=== PATIENT | female | born 1945 | race Caucasian/White ===

== ENCOUNTER 2017-04-23 14:11 | Outpatient (CLI) | payer MEDICARE, BC ==
--- NOTE | 2017-04-25 08:43 | Mammography Report ---
DIGITAL BILATERAL SCREENING MAMMOGRAM: 04/23/2017 CLINICAL HISTORY: This is a 71-year-old female in for routine screening mammogram. Patient has no f amily history of breast cancer. Patient has no breast surgical history. COMPARISON: 10/07/2012, 11/25/2013, 02/27/2015 TECHNIQUE: Routine CC and MLO projections were obtained of the breasts. FINDINGS: Breast parenchyma consists almost entirely of fat. No significant clusters of calcificati on are seen. No significant masses are noted. No significant change is seen. IMPRESSION: BREASTS APPEAR RADIOGRAPHICALLY BENIGN. BIRADS CATEGORY 1 - NEGATIVE. RECOMMENDATIONS: Annual bilateral screening mammography. STANDARD QUALIFYING STATEMENTS 1. This examination was reviewed with the aid of Computer-Aided Detection (CAD). 2. A negative or benign imaging report should not delay biopsy if clinically suspicious findings are present. Consider surgical consultation if warranted. More than 5% of cancers are not identified by i maging. 3. Dense breasts may obscure an underlying neoplasm. JOB #: [id number] EXT JOB #:[id number]
== END 2017-04-23 14:12 | disposition home or self-care (01) ==
LOC: DI.S 14:11
PROVIDERS: ATTEND Family Medicine
DX: Z12.31 Encounter for screening mammogram for malignant neoplasm of breast (principal)
CPT/HCPCS: 77067

== ENCOUNTER 2017-08-03 09:12 | Emergency (ER) | payer MEDICARE, BC ==
[2017-08-03 09:22] VITALS: BP 193/98
[2017-08-03] MEDS ORDERED: SULFAMETH/TRIMETH DS 800/160 MG TABLET PO STA (09:59)
[2017-08-03] MEDS ORDERED: PHENAZOPYRIDINE 100 MG TABLET PO STA (10:00)
--- NOTE | 2017-08-03 10:05 | ED Physician Documentation ---
History of Present Illness - Stated complaint Stated Complaint: FEMALE - Chief complaint Chief Complaint: UTI - History obtained from History obtained from: Patient - Additonal information Additional information: Patient is a 71-year-old female who for the most part is healthy. She presents with a complaint of lower urinary symptoms for the past couple days it is increasing despite [id number] urinary medications. She denies any nausea , fever, chills constipation or diarrhea. She has had urinary tract infections in the past and this feels similar. Review of systems: For pertinent positive and negatives in the review of systems please see the history of present illness, otherwise all other systems have been reviewed and are negative. Dragon disclaimer: Parts of this medical record were created using voice recognition technology. Because of the inherent limitations of this system, occasional same sounding word substitutions do occur and persist despite proofreading. Please read the document for context. Review of Systems Constitutional: denies: Fever, Chills GI: denies: Abdominal Pain, Abdominal Swelling, Nausea, Vomiting : reports: Dysuria, Frequency, Hesitancy, Unable to Void, Hematuria PD PAST MEDICAL HISTORY - Past Medical History Cardiovascular: Hypertension GI: GERD Psych: Depression Musculoskeletal: Other - Past Surgical History Past Surgical History: Yes Ortho: Knee replacement, Other - Present Medications Home Medications: Ambulatory Orders Medication Instructions Recorded Confirmed Lisinopril [Prinivil] 10 mg PO DAILY 09/13/13 08/03/17 Albuterol Sulfate [Proair Hfa 2 puffs INH Q4H PRN 11/20/16 08/03/17 Inhaler] Escitalopram [Lexapro] 10 mg PO DAILY 11/20/16 08/03/17 Omeprazole [PriLOSEC] 40 mg PO DAILY 11/20/16 08/03/17 Zolpidem Tartrate 2.5 - 5 mg PO QPM PRN 11/20/16 08/03/17 Phenazopyridine HCl [Pyridium] 200 mg PO TID #9 tablet 08/03/17 Sulfamethox/Trimeth 800/160 1 each PO BID #14 tablet 08/03/17 [Bactrim Ds 800/160] - Allergies Allergies/Adverse Reactions: Allergies Allergy/AdvReac Type Severity Reaction Status Date / Time erythromycin base Allergy Severe Hives Verified 08/03/17 09:22 [Erythromycin Base] Penicillins Allergy Severe Hives Verified 08/03/17 09:22 - Social History Does the pt smoke?: No Smoking Status: Never smoker Does the pt drink ETOH?: Yes Does the pt have substance abuse?: No - Immunizations Immunizations are current?: No Immunizations: TDAP current <10years - POLST Patient has POLST: No PD ED PE NORMAL - Vitals Vital signs reviewed: Yes - General General: Alert and oriented X 3 - Cardiac Cardiac: RRR - Respiratory Respiratory: No respiratory distress - Abdomen Abdomen: Normal bowel sounds, Soft, Non tender, Non distended - Neuro Neuro: Alert and oriented X 3 - Psych Psych: Normal mood, Normal affect Results - Vitals Vitals: Vital Signs - 24 hr 08/03/17 09:19 Temperature 36.7 C Heart Rate 80 Respiratory 16 Rate Blood Pressure 193/98 H O2 Saturation 99 Oxygen O2 Source Room air - Labs Labs: Laboratory Tests 08/03/17 09:20 Urine Color RED/BLOODY Urine Clarity BLOODY Urine pH 6.0 Ur Specific [place] 1.020 Urine Protein 100 H Urine Glucose (UA) NEGATIVE Urine Ketones NEGATIVE Urine Occult Blood LARGE H Urine Nitrite NEGATIVE Urine Bilirubin NEGATIVE Urine Urobilinogen 0.2 (NORMAL) Ur Leukocyte Esterase SMALL H Urine RBC TNTC H Urine WBC >25 H Ur Epithelial Cells RARE Renal Tubular Ur Squamous Epith Cells NONE SEEN Urine Bacteria Rare Ur Microscopic Review INDICATED Urine Culture Comments INDICATED PD MEDICAL DECISION MAKING - ED course Complexity details: re-evaluated patient, d/w patient ED course: Well-appearing young 71-year-old female here with lower urinary symptoms 1 day. She looks great on physical examination and stable vital signs and no concerning signs or symptoms. Her urine is suggestive of urinary tract infection with RBCs and white blood cells. She will be placed on a short course of Bactrim and Pyridium is been asked to watch her symptoms closely and return should she not improve. Disposition: To home Clinical impression: 1. Acute hemorrhagic cystitis Departure - Departure Disposition: 01 Home, Self Care Clinical Impression: Urinary tract infection Condition: Good Instructions: Urinary Tract Infecs Women Follow-Up: Brad Beckett MD [Primary Care Provider] - Prescriptions: Sulfamethox/Trimeth 800/160 [Bactrim Ds 800/160] 1 each PO BID #14 tablet Phenazopyridine HCl [Pyridium] 200 mg PO TID #9 tablet
[2017-08-03 10:10] LABS: BILIRUBIN,URINE NEGATIVE (NEGATIVE)
[2017-08-03] MEDS ORDERED: SULFAMETH/TRIMETH DS 800/160 MG TABLET PO ONE (10:10)
[2017-08-03] MEDS ORDERED: PHENAZOPYRIDINE 100 MG TABLET PO ONE (10:11)
[2017-08-03 10:22] LABS: UA w/ MICROSCOPIC CHARGE YES
[2017-08-03 10:27] LABS: WBC,URINE >25 /HPF (0-5)
[2017-08-03 10:28] LABS: UR CULTURE IF IND INDICATED
== END 2017-08-03 10:38 | disposition home or self-care (01) ==
LOC: ED 09:12
DX: N39.0 Urinary tract infection, site not specified (principal); I10 Essential (primary) hypertension; K21.9 Gastro-esophageal reflux disease without esophagitis
CPT/HCPCS: 81001; 87086; 87181; 99283; A9270; 81003

== ENCOUNTER 2018-10-01 09:01 | Outpatient (CLI) | payer MEDICARE, BC ==
--- NOTE | 2018-10-01 09:42 | CT Report ---
Reason: HEAD INJURY,DIZZINESS Procedure Date: 10/01/2018 Accession Number: [id number] / [id number] Procedure: CT - Head W/O CPT Code: FULL RESULT: EXAM: CT HEAD EXAM DATE: 10/01/2018 09:21 AM. CLINICAL HISTORY: HEAD INJURY, DIZZINESS. COMPARISON: Noncontrast head CT from 08/15/2015. TECHNIQUE: Multiaxial CT images were obtained from the foramen magnum to the vertex. Reformats: Sagittal and coronal. IV contrast: None. In accordance with CT protocol optimization, one or more of the following dose reduction techniques were utilized for this exam: automated exposure control, adjustment of mA and/or KV based on patient size, or use of iterative reconstructive technique. FINDINGS: Parenchyma: There is mild hypoattenuation in the periventricular and deep matter of bilateral cerebral hemispheres. The overall alba-white matter differentiation is preserved. No intracranial hemorrhage demonstrated. No evidence of mass or mass-effect. Extraaxial Spaces: Mild diffuse prominence, compatible with central volume loss. No extra-axial hemorrhage or fluid collection. Ventricles: Mildly prominent, again compatible with volume loss. No midline shift demonstrated. Basal cisterns are widely patent. Sinuses and Orbits: Imaged paranasal sinuses, orbits, and mastoids show no significant abnormality. Bones: No evidence of fracture or calvarial defect. Other: There is a small soft tissue hematoma over the left posterior parieto-occipital region. IMPRESSION: 1. Small soft tissue hematoma over the left parieto-occipital region. 2. No acute intracranial abnormality. 3. Sequela of mild chronic microvascular disease. RADIA
== END 2018-10-01 09:02 | disposition home or self-care (01) ==
LOC: DI 09:01
PROVIDERS: ATTEND Nurse Practitioner Family
DX: S00.03XA Contusion of scalp, initial encounter (principal); S09.90XA Unspecified injury of head, initial encounter; R42 Dizziness and giddiness
CPT/HCPCS: 70450

== ENCOUNTER 2018-12-30 14:06 | Outpatient (CLI) | payer MEDICARE, BC ==
--- NOTE | 2018-12-31 08:36 | Mammography Report ---
Reason: ENCOUNTER FOR SCREENING MAMMOGRAM FOR MALIGNANT NE Procedure Date: 12/30/2018 Accession Number: [id number] / [id number] Procedure: ALEC - Screening Mammo w/Kin CPT Code: FULL RESULT: EXAM: Screening Mammo w/Kin DATE: 12/30/2018 3:05 PM CLINICAL HISTORY: Screening encounter. No reported risk factors. TECHNIQUE: Bilateral CC and MLO views were obtained. COMPARISON: 04/23/2017 through 10/07/2012. FINDINGS: The breasts demonstrate diffuse fatty replacement bilaterally. No suspicious masses, clustered microcalcifications, or regions of architectural distortion are identified. IMPRESSION: Negative examination RECOMMENDATION: Routine annual screening unless otherwise clinically indicated. BIRADS CATEGORY 1: Negative STANDARD QUALIFYING STATEMENTS: 1. This examination was not reviewed with the aid of Computer-Aided Detection (CAD). 2. A negative or benign imaging report should not preclude biopsy if clinically suspicious findings are present. 3. Dense breasts may obscure an underlying neoplasm. 4. This examination was reviewed with the aid of 3D breast imaging (tomosynthesis).
== END 2018-12-30 14:07 | disposition home or self-care (01) ==
LOC: DI 14:06
PROVIDERS: ATTEND Family Medicine
DX: Z12.31 Encounter for screening mammogram for malignant neoplasm of breast (principal)
CPT/HCPCS: 77063; 77067

== ENCOUNTER 2019-07-09 10:32 | Outpatient (CLI) | payer MEDICARE, BC ==
--- NOTE | 2019-07-09 18:21 | XRAY Report ---
Reason: PLEURODYNIA Procedure Date: 07/09/2019 Accession Number: [id number] / [id number] Procedure: XRS - Ribs 2 View RT CPT Code: FULL RESULT: EXAM: RIGHT RIB RADIOGRAPHY EXAM DATE: 07/09/2019 10:47 AM. CLINICAL HISTORY: Pleurodynia. COMPARISON: CHEST 2 VIEW 07/09/2019 10:50 AM. TECHNIQUE: 2 views. FINDINGS: Bones: Bones are osteopenic. No fractures or bone lesions. Fusion hardware is seen in the lumbar spine. Lungs: No focal opacities evident. No pneumothorax or pleural effusions. Mediastinum: Heart and cardiomediastinal contours are unremarkable. Other: None. IMPRESSION: No rib or chest wall abnormality identified. RADIA
--- NOTE | 2019-07-09 18:21 | XRAY Report ---
Reason: PLEURODYNIA Procedure Date: 07/09/2019 Accession Number: [id number] / [id number] Procedure: XRS - Chest 2 View X-Ray CPT Code: 55076 FULL RESULT: EXAM: CHEST RADIOGRAPHY EXAM DATE: 07/09/2019 10:47 AM. CLINICAL HISTORY: PLEURODYNIA. COMPARISON: 11/04/2014 3:03 PM. TECHNIQUE: 2 views. FINDINGS: Lungs/Pleura: No focal opacities evident. No pleural effusion. No pneumothorax. Normal volumes. Mediastinum: Heart and mediastinal contours are unremarkable. Other: Spinal fusion hardware is seen in the upper lumbar spine region. Extensive diskogenic disease and retrolisthesis is seen at the thoracolumbar junction of uncertain chronicity. IMPRESSION: 1. No cardiopulmonary abnormality demonstrated. 2. Extensive diskogenic disease and moderate retrolisthesis at the thoracolumbar junction. No comparisons available. Findings are of uncertain chronicity. Patient may benefit from thoracic spine MRI for further evaluation. RADIA
== END 2019-07-09 10:33 | disposition home or self-care (01) ==
LOC: DI.S 10:32
PROVIDERS: ATTEND Nurse Practitioner Family
DX: R07.81 Pleurodynia (principal); M51.35 Other intervertebral disc degeneration, thoracolumbar region; M43.15 Spondylolisthesis, thoracolumbar region
CPT/HCPCS: 71046

== ENCOUNTER 2020-02-27 13:57 | Outpatient (CLI) | payer MEDICARE, BC | END 2020-02-27 13:58 | disposition short-term general hospital (02) | LOC: EMS 13:57 | PROVIDERS: ATTEND Surgery | DX: R47.81 Slurred speech (principal); R53.1 Weakness; R51 Headache | CPT/HCPCS: A0425; A0429 ==

== ENCOUNTER 2020-02-28 20:41 | Outpatient (CLI) | payer MEDICARE, BC | END 2020-02-28 20:42 | disposition short-term general hospital (02) | LOC: EMS 20:41 | PROVIDERS: ATTEND Surgery | DX: R29.810 Facial weakness (principal); R47.81 Slurred speech | CPT/HCPCS: A0425; A0429 ==

== ENCOUNTER 2020-06-24 09:19 | Outpatient (CLI) | payer MEDICARE, BC ==
--- NOTE | 2020-06-26 10:58 | MRI Report ---
PROCEDURE: Brain W/O INDICATIONS: HX OF SUBDURAL HEMATOMA, SEIZURE ORDER TECHNIQUE: Noncontrast axial T1 spin echo, axial T2 fast spin echo, sagittal and axial FLAIR, coronal T2 fast sp in echo, axial gradient echo, axial diffusion and ADC through the brain. COMPARISON: Correlation is made with head CT 10/01/2018 and 08/15/2015. Outside imaging is not availa ble for review at the time of this dictation. FINDINGS: Image quality: Excellent. CSF Spaces: Basal cisterns are patent. No extra-axial fluid collections. Ventricles are normal in size and shape. Brain: No intracranial masses or hemorrhage. Walter/white matter interface is normal. Brainstem appe ars normal. Diffusion-weighted images demonstrate no acute ischemic insult. Brain parenchymal volum e loss is seen. T2 hyperintense white matter lesions are seen, which are most prominent within the pe riventricular and deep white matter. No chronic ischemic insults. Normal intravascular flow voids ar e present. In this patient, scrutiny is given to the hippocampal regions. No significant hippocampal abnormality or asymmetry is detected. Skull and face: Calvarium has normal marrow signal. Orbits appear normal. Incidental note is made of bilateral lens replacements. Sinuses: Sinuses and mastoids are clear. Incidental note is made of a right-sided lucius bullosa. T here is mild leftward nasal septal deviation. IMPRESSION: No hemorrhage is seen. Brain parenchymal volume loss is seen. T2 hyperintense white matter lesions are seen, which are stati stically most likely related to chronic small vessel ischemic change in a patient of this age. A cause of seizures is not identified. Reviewed by: Uvaldo Katz MD on 06/26/2020 9:57 AM KATHLEEN Approved by: Uvaldo Katz MD on 06/26/2020 9:57 AM KATHLEEN Station ID: [id number]
== END 2020-06-24 09:20 | disposition home or self-care (01) ==
LOC: DI 09:19
PROVIDERS: ATTEND Psychiatry & Neurology Neurology
DX: G40.909 Epilepsy, unspecified, not intractable, without status epilepticus (principal); Z86.79 Personal history of other diseases of the circulatory system
CPT/HCPCS: 70551

== ENCOUNTER 2020-12-28 12:59 | Outpatient (CLI) | payer MEDICARE, BC ==
--- NOTE | 2020-12-28 15:39 | MRI Report ---
PROCEDURE: Lumbar Spine W/O INDICATIONS: LUMBOSACRAL RADICULOPATHY TECHNIQUE: Noncontrast sagittal T1 spin echo and T2 fast echo, sagittal STIR, axial T1 and T2 fast spin echo thr ough the lumbar spine. In cases with scoliosis, additional coronal T2 fast spin echo may be performe d. COMPARISON: prior lumbar MRI 02/27/2015 FINDINGS: Image quality: There is artifact associated with the metallic hardware. Motion artifact is noted. Alignment and Curvature: There is grade 1 retrolisthesis seen at T12-L1 and at L1-L2. Minimal retrol isthesis is seen at L2-L3. There is minimal anterolisthesis at L3-L4. Mild grade 1 anterolisthesis is seen at L4-L5. Minimal to mild dextroconvex lumbar sclerotic curvature can be seen. Bone Marrow: Marrow is of normal overall signal. No acute vertebral body compression fractures. Re mote Schmorl's nodes with mild loss of vertebral body height can be seen involving T10 and T11. There is approximately 20% loss of height seen involving T12 and L1 centrally, without acute features. T12 fracture and the L1 fracture have progressed compared to the 2015 examination, however. Spinal Cord: Conus medullaris terminates at the T12-L1 level. Visualized cord demonstrates normal s ignal and size. Paraspinous Soft Tissues: No paravertebral masses. Postoperative changes are seen, with bilateral pedicle screws at L3, L4, and L5. Vertical fixation ro ds are seen. There is associated susceptibility artifact. There has been removal of portions of the posterior elements. T12-L1: Moderate to severe loss of disc height and disc signal can be seen. Relatively prominent end plate irregularity can be seen. Moderate disc bulge is seen at this level. Moderate to severe bilat eral neuroforaminal narrowing can be seen. At least moderate central canal narrowing can be seen. The se degenerative changes have progressed when compared to the prior examination. L1-L2: At least moderate loss of disc height and disc signal can be seen. Mild to moderate disc bu lge is seen. Mild to moderate facet hypertrophy can be seen at this level. There is moderate to sever e bilateral neuroforaminal narrowing seen. Moderate to severe central canal narrowing is also seen at this level. These degenerative changes have progressed when compared to the prior examination. L2-L3: The disc height is well-preserved. There is loss of disc signal seen. Mild disc bulge is s een. Moderate facet hypertrophy is seen. Moderate bilateral neuroforaminal narrowing can be seen, right worse than left. Mild central canal narrowing is seen. These imaging findings are similar to the images of the prior examination. L3-L4: Moderate loss of disc height and signal are seen. Mild to moderate disc bulge can be seen. T he neural foramina are partially obscured. There is believed to the mild to moderate bilateral neurof oraminal narrowing. The central canal is widely patent. These degenerative changes have progressed when compared to the prior examination. L4-L5: At least moderate loss of disc height is seen at this level. Mild to moderate disc bulge is seen. Mild to moderate facet hypertrophy can be seen. The neural foramina are not well seen. There is believed to be moderate bilateral neuroforaminal narrowing. No significant central canal narrowing c an be seen. These degenerative changes have progressed when compared to the prior examination. L5-S1: The disc height is well-preserved. There is loss of disc signal seen. Mild disc bulge is se en. Mild facet hypertrophy is seen. No significant neural foraminal or central canal narrowing can be seen. These imaging findings are similar to the images of the prior examination. IMPRESSION: Stable lower lumbar spine postoperative changes are seen. Multiple levels of lumbar spine degenerative change are seen, which are overall progressed compared t o 2014. There is progression T12 and L1 fractures compared to 2015, yet without acute features. Reviewed by: Uvaldo Katz MD on 12/28/2020 2:37 PM [place] Approved by: Uvaldo Katz MD on 12/28/2020 2:37 PM [facility] Station ID: [id number]
== END 2020-12-28 13:00 | disposition home or self-care (01) ==
LOC: DI 12:59
PROVIDERS: ATTEND Nurse Practitioner Family
DX: M47.26 Other spondylosis with radiculopathy, lumbar region (principal)

== ENCOUNTER 2021-01-01 14:14 | Outpatient (CLI) | payer MEDICARE, BC ==
--- NOTE | 2021-01-10 12:01 | Mammography Report ---
BILATERAL DIGITAL SCREENING MAMMOGRAM 3D/2D: 01/01/2021 CLINICAL: Routine screening. Comparison is made to exams dated: 12/30/2018 mammogram, 02/27/2015 mammogram, and 04/23/2017 mammogram - [facility]. There are scattered fibroglandular elements in both breasts. No significant masses, calcifications, or other findings are seen in either breast. There has been no significant interval change. IMPRESSION: NEGATIVE There is no mammographic evidence of malignancy. A 1 year screening mammogram is recommended. This exam was interpreted at Station ID: [id number]. NOTE: For mammograms, a report in lay terms will be sent to the patient. Approximately 15% of breast malignancies will not be visualized mammographically. In the management of a palpable breast mass, a negative mammogram must not discourage biopsy of a clinically suspicious lesion. Electronically Signed By: Beryl amor/marco arad:01/09/2021 12:20:28 ACR BI-RADS Category 1: Negative 3341F PARENCHYMAL PATTERN: (A) - The breast(s) demonstrate(s) scattered fibroglandular densities. BI-RADS CATEGORY: (1) - 1 RECOMMENDATION: (ANNUAL) - Recommend routine annual screening mammography. [id number] 1 year screening LATERALITY: (B)
== END 2021-01-01 14:15 | disposition home or self-care (01) ==
LOC: DI.S 14:14
PROVIDERS: ATTEND Nurse Practitioner Family
DX: Z12.31 Encounter for screening mammogram for malignant neoplasm of breast (principal)

== ENCOUNTER 2021-04-18 15:04 | Outpatient (CLI) | payer MEDICARE, BC ==
--- NOTE | 2021-04-18 15:27 | XRAY Report ---
PROCEDURE: Ankle 3 View RT INDICATIONS: SWELLING OF ANKLE JOINT, RIGHT TECHNIQUE: 3 views of the ankle were acquired. COMPARISON: 03/26/2017 plain films FINDINGS: Bones: No fractures or dislocations. ORIF of the medial and lateral malleolus, as before. Hardware i s intact. Ankle mortise is normally aligned. No suspicious bony lesions. Soft tissues: No tibiotalar joint effusion. Achilles tendon appears normal. IMPRESSION: Stable postsurgical sequelae. No acute fracture. No osseous lesion. If symptoms and/or c linical suspicion for pathology continue, further assessment with repeat plain films, or advanced keith ging (e.g., CT or bone scan) is recommended for further assessment. Reviewed by: Himanshu Ballard MD on 04/18/2021 3:25 PM PDT Approved by: Himanshu Ballard MD on 04/18/2021 3:25 PM PDT Station ID: [id number]
== END 2021-04-18 15:05 | disposition home or self-care (01) ==
LOC: DI.S 15:04
PROVIDERS: ATTEND Nurse Practitioner Family
DX: S82.841D Displaced bimalleolar fracture of right lower leg, subsequent encounter for closed fracture with routine healing (principal)

== ENCOUNTER 2021-04-20 12:27 | Outpatient (CLI) | payer MEDICARE, BC ==
--- NOTE | 2021-04-20 15:56 | CT Report ---
PROCEDURE: LOWER EXTREMITY WO - RT INDICATIONS: RIGHT ANKLE EFFUSION TECHNIQUE: Noncontrast 3 mm axial sections acquired of the right ankle, with coronal and sagittal reformats. COMPARISON: Plain films of the right ankle dated 04/18/2021 FINDINGS: Image quality: Excellent. Bones: ORIF of the medial malleolus and distal fibula has been performed. Hardware is intact. No acu te fracture nor osseous lesion. Soft tissues: No soft tissue fluid collections. No evidence of ankle joint effusion. IMPRESSION: 1. Postsurgical sequelae. 2. No ankle joint effusion. Reviewed by: Himanshu Ballard MD on 04/20/2021 3:54 PM PDT Approved by: Himanshu Ballard MD on 04/20/2021 3:54 PM PDT Station ID: [id number]
== END 2021-04-20 12:28 | disposition home or self-care (01) ==
LOC: DI 12:27
PROVIDERS: ATTEND Nurse Practitioner Family
DX: M25.471 Effusion, right ankle (principal); S82.54XD Nondisplaced fracture of medial malleolus of right tibia, subsequent encounter for closed fracture with routine healing

== ENCOUNTER 2021-05-11 08:00 | Outpatient (CLI) | payer MEDICARE, BC | END 2021-05-11 23:59 | disposition home or self-care (01) | LOC: LAB.S 08:00 | PROVIDERS: ATTEND Physician Assistant | DX: N39.0 Urinary tract infection, site not specified (principal) | CPT/HCPCS: 87086; 87181 ==

== ENCOUNTER 2022-03-20 14:47 | Outpatient (CLI) | payer MEDICARE, BC ==
--- NOTE | 2022-03-21 13:55 | Mammography Report ---
BILATERAL DIGITAL SCREENING MAMMOGRAM 3D/2D: 03/20/2022 CLINICAL: Routine screening. No prior exams were available for comparison. There are scattered fibroglandular elements in both br easts. No significant masses, calcifications, or other findings are seen in either breast. IMPRESSION: NEGATIVE There is no mammographic evidence of malignancy. A 1 year screening mammogram is recommended. This exam was interpreted at Station ID: [id number]. NOTE: For mammograms, a report in lay terms will be sent to the patient. Approximately 15% of breast malignancies will not be visualized mammographically. In the management of a palpable breast mass, a negative mammogram must not discourage biopsy of a clinically suspicious lesion. Electronically Signed By: Willie Barba M.D., jr/divya:03/21/2022 09:13:09 ACR BI-RADS Category 1: Negative 3341F PARENCHYMAL PATTERN: (A) - The breast(s) demonstrate(s) scattered fibroglandular densities. BI-RADS CATEGORY: (1) - 1 RECOMMENDATION: (ANNUAL) - Recommend routine annual screening mammography. [id number] 1 year screening LATERALITY: (B)
== END 2022-03-20 14:48 | disposition home or self-care (01) ==
LOC: DI.S 14:47
PROVIDERS: ATTEND Family Medicine
DX: Z12.31 Encounter for screening mammogram for malignant neoplasm of breast (principal)

== ENCOUNTER 2022-03-27 12:24 | Outpatient (CLI) | payer MEDICARE, BC ==
[2022-03-27] MEDS: ALBUTEROL 1 PUFF INH STA (14:07)
== END 2022-03-27 12:25 | disposition home or self-care (01) ==
LOC: RT 12:24
PROVIDERS: ATTEND Nurse Practitioner Family
DX: J44.9 Chronic obstructive pulmonary disease, unspecified (principal)
CPT/HCPCS: 94060

== ENCOUNTER 2022-03-27 13:42 | Outpatient (CLI) | payer MEDICARE, BC ==
--- NOTE | 2022-03-27 16:31 | DEXA Report ---
PROCEDURE: Dexa Spine and/or Hip INDICATIONS: OSTEOPOROSIS, AGE-RELATED OSTEOPOROSIS W/O CURRENT TECHNIQUE: Dual energy x-ray absorptiometry (DXA) was performed on a [employer] System. Regions measur ed are the AP Spine, femoral neck, and if needed forearm. COMPARISON: None. FINDINGS: Lumbar Spine (L1-L2): Bone Mineral Density 1.161 g/cm/cm,T score 0.00 Left Hip: Bone Mineral Density 0.620 g/cm/cm,T score -3.1. Left Femoral Neck: Bone Mineral Density 0.715 g/cm/cm, T score -2.3 (T score greater or equal to -1.0: NORMAL) (T score from -1.1 to -2.4: OSTEOPENIA) (T score less than or equal to -2.5 to: OSTEOPOROSIS) Impression: Osteoporosis Patients with diagnosis of osteoporosis or osteopenia should have regular bone mineral density assess ment. For those eligible for Medicare, routine testing is allowed once every 2 years. Testing frequ ency can be increased for patients who have rapidly progressing disease or for those who are receivin g medical therapy to restore bone mass. Reviewed by: Enrique Harrison MD on 03/27/2022 4:29 PM PDT Approved by: Enrique Harrison MD on 03/27/2022 4:29 PM PDT Station ID: [id number]
== END 2022-03-27 13:43 | disposition home or self-care (01) ==
LOC: DI 13:42
PROVIDERS: ATTEND Nurse Practitioner Family
DX: M81.0 Age-related osteoporosis without current pathological fracture (principal); J44.9 Chronic obstructive pulmonary disease, unspecified
CPT/HCPCS: 94060

== ENCOUNTER 2023-01-15 12:06 | Outpatient (CLI) | payer MEDICARE, BC ==
--- NOTE | 2023-01-15 15:10 | XRAY Report ---
PROCEDURE: Cervical Spine 2 View INDICATIONS: NECK PAIN TECHNIQUE: 3 view of the cervical spine were acquired. COMPARISON: None. FINDINGS: Bones: Generalized osteopenia. No acute fractures or dislocations to the C7 level. Approximately 2 mm grade 1 retrolisthesis of C5 on C6 is noted as well as to millimeter grade 1 anterolisthesis of C3 o n C4.. The lateral masses of C1 appear intact on the odontoid view. No suspicious bony lesions. Mult ilevel disc space narrowing and degenerative endplate changes are seen. There is multilevel intervert ebral joint and facet hypertrophy. Soft tissues: No prevertebral soft tissue swelling. IMPRESSION: Moderate to severe multilevel spondylosis and mild degenerative spondylolisthesis. Cervi dani spine MRI could be performed for further evaluation if indicated clinically. Reviewed by: Yonatan Kim MD on 01/15/2023 3:09 PM PST Approved by: Yonatan Kim MD on 01/15/2023 3:09 PM PST Station ID: [id number]
== END 2023-01-15 12:07 | disposition home or self-care (01) ==
LOC: DI.S 12:06
PROVIDERS: ATTEND Nurse Practitioner Family
DX: M47.812 Spondylosis without myelopathy or radiculopathy, cervical region (principal); M43.12 Spondylolisthesis, cervical region

== ENCOUNTER 2023-03-25 10:03 | Outpatient (CLI) | payer MEDICARE, BC ==
--- NOTE | 2023-03-26 09:40 | Mammography Report ---
BILATERAL DIGITAL SCREENING MAMMOGRAM 3D/2D: 03/25/2023 CLINICAL: Routine screening. Comparison is made to exams dated: 03/20/2022 mammogram, 01/01/2021 mammogram, and 12/30/2018 mammogram - [facility]. There are scattered areas of fibroglandular density in both breasts (category b / 25%-50% glandular t issue). No significant masses, calcifications, or other findings are seen in either breast. There has been no significant interval change. IMPRESSION: NEGATIVE There is no mammographic evidence of malignancy. A 1 year screening mammogram is recommended. Based on the Tyrer Cuzick model (a risk assessment model) the patients lifetime risk is 2.9% and her 10 year risk is 2.9%. According to the ACR, ACS, and NCCN guidelines, an annual breast MRI exam татьяна g with mammogram is recommended if the patients lifetime risk is 20% or greater. This exam was interpreted at Station ID: [id number]. NOTE: For mammograms, a report in lay terms will be sent to the patient. Approximately 15% of breast malignancies will not be visualized mammographically. In the management of a palpable breast mass, a negative mammogram must not discourage biopsy of a clinically suspicious lesion. Electronically Signed By: Adolph conde/divya:03/25/2023 17:44:51 letter sent: No_Letter ACR BI-RADS Category 1: Negative 3341F PARENCHYMAL PATTERN: (A) - The breast(s) demonstrate(s) scattered fibroglandular densities. BI-RADS CATEGORY: (1) - 1 Mammogram [id number] 1 year screening LATERALITY: (B)
== END 2023-03-25 10:04 | disposition home or self-care (01) ==
LOC: DI.S 10:03
PROVIDERS: ATTEND Nurse Practitioner Family
DX: Z12.31 Encounter for screening mammogram for malignant neoplasm of breast (principal)

== ENCOUNTER 2023-10-15 11:21 | Outpatient (CLI) | payer MEDICARE, BC ==
--- NOTE | 2023-10-15 13:23 | XRAY Report ---
PROCEDURE: Chest 2 View X-Ray INDICATIONS: DYSPNEA ON EXERTION TECHNIQUE: 2 views of the chest were acquired. COMPARISON: 07/09/2019 FINDINGS: Surgical changes and devices: Lower lumbar posterior fusion hardware. Lungs and pleura: Mildly hyperinflated, hyperlucent lungs with slightly coarse interstitial markings , chronic. No dense consolidations. Possible trace left pleural effusion versus thickening. Mediastinum: Mediastinal contours appear normal. Heart size is normal. Bones and chest wall: No suspicious bony lesions. Overlying soft tissues appear unremarkable. IMPRESSION: 1. Mild coarsening of interstitial markings may indicate underlying emphysema and fibrotic changes or edema. Viral pneumonitis may have this appearance superimposed on emphysematous change. 2. No cardiomegaly. 3. Trace left pleural effusion or pleural thickening. Reviewed by: Beryl Denson MD on 10/15/2023 1:22 PM PST Approved by: Beryl Denson MD on 10/15/2023 1:22 PM PST Station ID: [id number]
== END 2023-10-15 11:22 | disposition home or self-care (01) ==
LOC: DI.S 11:21
PROVIDERS: ATTEND Registered Nurse
DX: R06.09 Other forms of dyspnea (principal); R91.8 Other nonspecific abnormal finding of lung field

== ENCOUNTER 2024-07-06 10:45 | Outpatient (CLI) | payer MEDICARE, BC ==
--- NOTE | 2024-07-07 08:08 | Mammography Report ---
BILATERAL DIGITAL SCREENING MAMMOGRAM 3D/2D: 07/06/2024 CLINICAL: Routine screening. Comparison is made to exams dated: 03/25/2023 mammogram, 03/20/2022 mammogram, 01/01/2021 mammogram, 01/01 mammogram, 12/30/2018 mammogram, and 04/23/2017 mammogram - [facility]. There are scattered areas of fibroglandular density in both breasts (category b / 25%-50% glandular t issue). No significant masses, calcifications, or other findings are seen in either breast. There has been no significant interval change. IMPRESSION: NEGATIVE There is no mammographic evidence of malignancy. A 1 year screening mammogram is recommended. Based on the Tyrer Cuzick model (a risk assessment model) the patient's lifetime risk is 2.7% and her 10 year risk is 0.0%. According to the ACR, ACS, and NCCN guidelines, an annual breast MRI exam татьяна g with mammogram is recommended if the patient's lifetime risk is 20% or greater. This exam was interpreted at Station ID: [id number]. NOTE: For mammograms, a report in lay terms will be sent to the patient. Approximately 15% of breast malignancies will not be visualized mammographically. In the management of a palpable breast mass, a negative mammogram must not discourage biopsy of a clinically suspicious lesion. Electronically Signed By: Brianne Nielsen M.D., Ph.D. [email or web address]:07/07/2024 06:05:04 letter sent: No_Letter ACR BI-RADS Category 1: Negative 3341F PARENCHYMAL PATTERN: (A) - The breast(s) demonstrate(s) scattered fibroglandular densities. BI-RADS CATEGORY: (1) - 1 RECOMMENDATION: (ANNUAL) - Recommend routine annual screening mammography. [id number] 1 year screening LATERALITY: (B)
== END 2024-07-06 10:46 | disposition home or self-care (01) ==
LOC: DI 10:45
PROVIDERS: ATTEND Registered Nurse
DX: Z12.31 Encounter for screening mammogram for malignant neoplasm of breast (principal); R92.323 Mammographic fibroglandular density, bilateral breasts

== ENCOUNTER 2024-07-06 10:46 | Outpatient (CLI) | payer MEDICARE, BC ==
--- NOTE | 2024-07-06 17:27 | DEXA Report ---
PROCEDURE: Dexa Spine and/or Hip INDICATIONS: OSTEOPOROSIS TECHNIQUE: Dual energy x-ray absorptiometry (DXA) was performed on a [employer] System. Regions measur ed are the AP Spine, femoral neck, and if needed forearm. COMPARISON: DEXA on all March 27, 2022 FINDINGS: Lumbar Spine: L1-L2 due to posterior fusion hardware from L3 to L5. Bone Mineral Density: 1.172 g/cm/cm,T score: 0.1. There has been no statistically significant change in bone mineral density since the prior study. Left Femoral Neck: Bone Mineral Density: 0.699 g/cm/cm, T score: -2.4. Left Hip: Bone Mineral Density: 0.613 g/cm/cm,T score: -3.1. There has been no statistically significant change in bone mineral density since the prior study. Left Forearm (radius total): Bone Mineral Density: 0.347 g/cm/cm, T score: -5.4. (T score greater or equal to -1.0: NORMAL) (T score from -1.1 to -2.4: OSTEOPENIA) (T score less than or equal to -2.5 to: OSTEOPOROSIS) Impression: By WHO criteria, this patient has osteoporosis. No statistical interval change in bone mineral density of the lumbar spine. No statistical interval c hange in bone mineral density of the hip. Patients with diagnosis of osteoporosis or osteopenia should have regular bone mineral density assess ment. For those eligible for Medicare, routine testing is allowed once every 2 years. Testing frequ ency can be increased for patients who have rapidly progressing disease or for those who are receivin g medical therapy to restore bone mass. Reviewed by: Lucia Arreguin MD on 07/06/2024 5:25 PM PDT Approved by: Lucia Arreguin MD on 07/06/2024 5:25 PM PDT Station ID: [id number]
== END 2024-07-06 10:47 | disposition home or self-care (01) ==
LOC: DI 10:46
PROVIDERS: ATTEND Registered Nurse
DX: M81.0 Age-related osteoporosis without current pathological fracture (principal); Z98.1 Arthrodesis status